=== PATIENT | male | born 1960 | race Caucasian/White ===

== ENCOUNTER → 2018-08-13 | Outpatient (CLI) | payer OTHER ==
[~2018-08-13] MED LIST: IOPAMIDOL 370 MG/ML 200 ML INFUS..BTL INJ ONE; SODIUM CHLORIDE 0.9% 50ML 50 ML ONE
[2018-08-13 09:29] LABS: BLOOD UREA NITROGEN 13 mg/dL (7-26); BUN/CREATININE RATIO 11 (6-25); CREATININE, SERUM 1.14 mg/dL (0.72-1.25); EST GLOMERULAR FILTRATION RATE > 60 ML/MIN (60-)
--- NOTE | 2018-08-13 11:01 | Diagnostic Imaging Report ---
EXAM: CT Angiogram Chest WITH contrast INDICATION: Follow-up thoracic aortic aneurysm. COMPARISON: None. TECHNIQUE: Chest was scanned utilizing a multidetector helical scanner from the lung apex through the level of the adrenal glands after administration of IV contrast in arterial phase. Coronal and sagittal reformations were obtained. CT Angiogram protocol was performed. 3D reconstruction was performed and viewed on dedicated workstation. Dose modulation, iterative reconstruction, and/or weight based adjustment of the mA/kV was utilized to reduce the radiation dose to as low as reasonably achievable. IV CONTRAST: 100 mL of Isovue 370. RADIATION DOSE: Total DLP: 567.4 mGy*cm COMPLICATIONS: None FINDINGS: VASCULAR FINDINGS: Thoracic aorta: Aortic Annulus: 2.4 cm Sinus of Valsalva: 3.9 cm Ascending Aorta at level of PA: 4.0 cm Mid Arch: 2.8 cm Proximal Descendin.8 cm Mid Descendin.6 cm Distal Descendin.6 cm Aortic hiatus: 2.5 cm. No evidence of aortic dissection. No significant atherosclerotic changes within the thoracic aorta. Mild atherosclerotic changes of the proximal right subclavian artery without stenosis. The main pulmonary artery is enlarged measuring up to 3.5 cm, suggestive of pulmonary arterial hypertension. No evidence of central pulmonary embolism. LINES/ TUBES: None. LUNGS AND AIRWAYS: The central airways are patent. No evidence of pneumonia or pulmonary edema. Calcified granuloma within the left upper lobe. Mild patchy dependent atelectasis. PLEURA: Mild biapical pleural-parenchymal opacity. HEART AND MEDIASTINUM: The thyroid gland is normal. No mediastinal, hilar or axillary lymphadenopathy. No cardiomegaly or pericardial effusion. UPPER ABDOMEN: Limited non-contrast views of the upper abdomen show no abnormality within the visualized liver or spleen. Partially seen cholecystectomy clips. BONES/SOFT TISSUES: No acute osseous abnormality. No suspicious lytic or blastic lesion. IMPRESSION: Mildly ectatic ascending aorta measuring up to 4 cm without evidence of aneurysm. No evidence of aortic dissection. Enlargement of the main pulmonary artery suggestive of pulmonary arterial hypertension. Signed by: Dr. Trent Carter MD on 08/13/2018 10:58 AM
== END ==
LOC: CT 08:19
PROVIDERS: ATTEND Internal Medicine Cardiovascular Disease
DX: I71.2 Thoracic aortic aneurysm, without rupture (principal)
CPT/HCPCS: 36415; 71275; 82565; 84520; Q9967

== ENCOUNTER → 2019-09-04 | Outpatient (CLI) | payer OTHER ==
[~2019-09-04] MED LIST changes: +SODIUM CHLORIDE 0.9% 100 ML ONE; -SODIUM CHLORIDE 0.9% 50ML 50 ML ONE
[2019-09-04 11:50] LABS: BLOOD UREA NITROGEN 13 mg/dL (7-26); BUN/CREATININE RATIO 12 (6-25); CREATININE, SERUM 1.09 mg/dL (0.72-1.25); EST GLOMERULAR FILTRATION RATE > 60 ML/MIN (60-)
--- NOTE | 2019-09-04 12:57 | Diagnostic Imaging Report ---
EXAM: CT Angiogram Chest WITH contrast INDICATION: Follow-up thoracic aortic aneurysm. COMPARISON: None. TECHNIQUE: Chest was scanned utilizing a multidetector helical scanner from the lung apex through the level of the adrenal glands after administration of IV contrast in arterial phase. Coronal and sagittal reformations were obtained. CT Angiogram protocol was performed. 3D reconstruction was performed and viewed on dedicated workstation. Dose modulation, iterative reconstruction, and/or weight based adjustment of the mA/kV was utilized to reduce the radiation dose to as low as reasonably achievable. IV CONTRAST: 100 mL of Isovue 370. RADIATION DOSE: Total DLP: 599.5 mGy*cm COMPLICATIONS: None FINDINGS: VASCULAR FINDINGS: Thoracic aorta: Aortic Annulus: 2.3 cm Sinus of Valsalva: 4.2 cm Ascending Aorta at level of PA: 4.0 cm Mid Arch: 2.7 cm Proximal Descendin.7 cm Mid Descendin.7 cm Distal Descendin.7 cm Aortic hiatus: 2.3 cm. No evidence of aortic dissection. No significant atherosclerotic changes within the thoracic aorta. Mild atherosclerotic changes of the proximal right subclavian artery without stenosis. The main pulmonary artery is enlarged measuring up to 3.4 cm, suggestive of pulmonary arterial hypertension. No evidence of central pulmonary embolism. LINES/ TUBES: None. LUNGS AND AIRWAYS: The central airways are patent. No evidence of pneumonia or pulmonary edema. Calcified granuloma within the left upper lobe. Minimal left lower lobe dependent subsegmental atelectasis. PLEURA: No pleural effusion or pneumothorax. HEART AND MEDIASTINUM: The thyroid gland is normal. No mediastinal, hilar or axillary lymphadenopathy. No cardiomegaly or pericardial effusion. UPPER ABDOMEN: No acute findings. BONES/SOFT TISSUES: No acute osseous injury. IMPRESSION: Essentially unchanged mildly ectatic ascending aorta measuring up to 4 cm without evidence of aneurysm. No evidence of aortic dissection. No acute cardiopulmonary process. Signed by: Richard Madison MD on 09/04/2019 12:54 PM
== END ==
LOC: CT 11:02
PROVIDERS: ATTEND Internal Medicine Cardiovascular Disease
DX: I71.2 Thoracic aortic aneurysm, without rupture (principal)
CPT/HCPCS: 36415; 71275; 82565; 84520; J7050; Q9967

== ENCOUNTER → 2021-03-17 | Outpatient (CLI) | payer OTHER ==
[~2021-03-17] MED LIST changes: -SODIUM CHLORIDE 0.9% 100 ML ONE; +SODIUM CHLORIDE 0.9% 50ML 50 ML ONE
== END ==
LOC: CT 08:23
PROVIDERS: ATTEND Internal Medicine Cardiovascular Disease
DX: I71.2 Thoracic aortic aneurysm, without rupture (principal)
CPT/HCPCS: 71275; Q9967